=== PATIENT | female | born 1995 | race Caucasian/White ===

== ENCOUNTER 2017-03-20 16:03 | Emergency (ER) | payer BC ==
[2017-03-20 17:16] VITALS: BP 107/64
--- NOTE | 2017-03-20 18:07 | UC ---
FLU HPI - HPI Summary HPI Summary: pt presents with c/o generalized malaise, right side rib pain, night sweats, chills fever at night only X 3-4 days - History of Current Complaint Chief Complaint: UCGeneralIllness Stated Complaint: BODY ACHES,RIGHT SIDE PAIN Time Seen by Provider: 03/20/17 17:43 Hx Obtained From: Patient Hx Last Menstrual Period: 02/20/17 ?: No Onset/Duration: Sudden Onset, Lasting Days - 3-4 days Severity Currently: Mild Severity Initially: Mild Associated Signs & Symptoms: Positive: Fever, Myalgia - Allergy/Home Medications Allergies/Adverse Reactions: Allergies Allergy/AdvReac Type Severity Reaction Status Date / Time No Known Allergies Allergy Verified 03/20/17 17:16 Home Medications: Home Medications Dayquil ONCE 03/20/17 [History] PMH/Surg Hx/FS Hx/Imm Hx Previously Healthy: Yes - Surgical History Surgical History: None - Family History Known Family History: Positive: Cardiac Disease - Social History Alcohol Use: Rare Substance Use Type: None Smoking Status (MU): Never Smoked Tobacco - Immunization History Most Recent Influenza Vaccination: none Vaccination Up to Date: Yes Review of Systems Constitutional: Fever, Chills Skin: Negative Eyes: Negative ENT: Negative Respiratory: Negative Cardiovascular: Negative Gastrointestinal: Negative Genitourinary: Negative Motor: Negative Neurovascular: Negative Musculoskeletal: Arthralgia - right side rib #8-10 Neurological: Negative Psychological: Negative All Other Systems Reviewed And Are Negative: Yes Physical Exam Triage Information Reviewed: Yes Appearance: Well-Appearing Vital Signs: Initial Vital Signs Temp 100.6 F 03/20/17 17:09 Pulse 90 03/20/17 17:09 Resp 17 03/20/17 17:09 BP 107/64 03/20/17 17:09 Pulse Ox 100 03/20/17 17:09 Eye Exam: Normal ENT Exam: Normal Neck exam: Normal Respiratory Exam: Normal Cardiovascular Exam: Normal Abdominal Exam: Other Abdomen Description: Positive: CVA Tenderness (R) Musculoskeletal Exam: Normal Neurological Exam: Normal Psychological Exam: Normal Skin Exam: Other - clammy, Flu Course/Dx - Course Course Of Treatment: I discussed with the pt that if she is not afebrile in the next 24 hours that she seek care at the closest ER for continued evaluation and testing for her current c/o. - Differential Dx/Diagnosis Differential Diagnosis/HQI/PQRI: Influenza, Other - UTI , kidney stone, pyelonephritis Provider Diagnoses: UTI ,. kidney stone-? pyelonephritis-? Discharge - Discharge Plan Condition: Stable Disposition: HOME Prescriptions: Cephalexin CAP* [Keflex 500 CAP*] 500 mg PO Q12H #14 cap Patient Education Materials: Urinary Tract Infection in Women (ED) Referrals: [facility] [Outside] No Primary Care Phys,NOPCP [Primary Care Provider] - As Soon As Possible Additional Instructions: Please establish care with a PCP as soon as possible.
[2017-03-20] MEDS ORDERED: Cephalexin CAP* 500 MG PO ONE (18:27)
--- NOTE | 2017-03-20 18:46 | RAD ---
Indication: Chest pain. 2 views of the chest including dual energy PA views demonstrate no mediastinal shift. Heart is of normal size and configuration. Lung mills demonstrate no pleural fluid, pneumonia or pneumothorax. IMPRESSION: No active cardiopulmonary disease is noted.
== END 2017-03-20 18:51 | disposition home or self-care (01) ==
LOC: UCCORT 16:03
DX: N39.0 Urinary tract infection, site not specified (principal)
CPT/HCPCS: 71020; 81003; 87077; 87086; 87186; 87502; 99202; A9270-GY; G0463